=== PATIENT | female | born 1955 | race Caucasian/White ===

== ENCOUNTER 2019-02-23 12:36 | Day surgery (SDC) | payer OTHER, SELFPAY ==
--- NOTE | 2019-02-23 | PATH_ITS ---
[facility] Accession Number: [id number] . 01 Material submitted: . colon - COLON POLYP AT HEPATIC FLEXUEURE . 01 Clinical history: . SCREENING COLONOSCOPY . 02 Diagnosis: Colon, Hepatic Flexure Polyp, Biopsy: Colonic mucosa with a small benign lymphoid aggregate and no other diagnostic abnormality. Additional levels were examined. Negative for dysplasia and malignancy. [facility] 02/26/2019 1607 Local . 02 Electronically signed: . Marisela Woodson MD, Pathologist NPI- [id number] . 01 Gross description: . COLON POLYP AT HEPATIC FLEXUEURE: Received in formalin are 2 fragment(s) of negron, soft tissue measuring 0.6 x 0.2 x 0.1 cm to 0.5 x 0.2 x 0.1 cm submitted entirely in 1 cassette(s) /[facility] 02/23/2019 2102 Local . 02 Pathologist provided ICD-10: Z12.11, K63.5 . 02 CPT . 143621 Performed at: 01 [facility] [address], [place], [place] [id number] MD Jimy Killian MD Phone: [phone] Performed at: 02 [facility] [address] [place], [place] [id number] MD Marisela Woodson MD Phone: [phone]
[2019-02-23] MEDS: SODIUM CHLORIDE 0.9% 1,000 ML 200 ML IV (13:17)
[2019-02-23 13:18] VITALS: BP 123/74; PULSE 88; RESP 20; TEMP 36.6; O2SAT 94; BMI 34.7
--- NOTE | 2019-02-23 13:50 | PM.HP.1 ---
History of Present Illness History of Present Illness Date Patient Seen: 02/23/19 Time Patient Seen: 13:50 Chief complaint: 11306 SCREENING COLONOSCOPY Narrative: Patient here for screening colonoscopy is never had polyps during previous exams is asymptomatic Patient History Medical History Hypercholesteremia (Acute) Hypertension (Acute) Kidney stones (Acute) Surgical History H/O oophorectomy (Acute) Family & Social History Social History: household members spouse Meds Home Medications and Allergies Allergies Allergy/AdvReac Type Severity Reaction Status Date / Time bee venom protein (honey bee) Allergy Severe Anaphylaxis Verified 02/23/19 13:15 shrimp Allergy Severe Anaphylaxis Verified 02/23/19 13:15 Review of Systems Review of Systems ROS Unobtainable: All systems reviewed & are unremarkable except as noted in HPI and below Exam Vital Signs (past 8 hours): - 02/23/19 13:18 Temperature 97.8 F Pulse Rate 88 Respiratory Rate 20 Blood Pressure 123/74 Pulse Oximetry 94 Oxygen Delivery Method Room Air Narrative Exam Narrative: Patient is asymptomatic alert and oriented Lungs clear with no rales or wheezes Heart regular rhythm no murmur Abdomen soft no organomegaly no tenderness Rectal be done at colonoscopy Assessment & Plan Assessment & Plan narrative: Patient here for screening colonoscopy is never had polyps on previous colonoscopy she is asymptomatic she has no unanswered questions
--- NOTE | 2019-02-23 14:12 | PM.OP.1 ---
Operative Date/Time/Diagnoses Date of procedure: 02/23/19 Time of procedure: 14:12 Pre-op diagnosis: Screening colonoscopy Post-op diagnosis: other (5 mm polyp hepatic flexure also extensive sigmoid diverticulosis) Procedure & Clinicians Procedure: Total colonoscopy to the cecum and excisional biopsy of 5 mm polyp hepatic flexure Same procedure as scheduled: Yes Surgeon: Torres Camarena Click Yes if Unassisted: Yes Anesthesia Type: Sedation Operative Notes Closure Type: not applicable Procedure in detail: The patient was properly identified during surgical pause she was given a total of 2 mg of Versed and 100 micro g of fentanyl and remained comfortable throughout the procedure. The flexible fiberoptic colonoscope inserted transanally to the cecum. Patient has extensive sigmoid diverticulosis. She had a 5 mm polyp in the hepatic flexure which was excised with the cold forceps and submitted. This is likely not an adenoma but most likely a hyperplastic polyp. Procedures very well tolerated. Total time of sedation was 15 minutes scope withdrawal time was 8 minutes Complications: none Post-operative Disposition: PACU Plan for aftercare: Recommend colonoscopy repeat in 5 years. This is depending on the nature of the biopsy pending.
[2019-02-23 14:18] VITALS: BP 125/64; PULSE 79; RESP 15; TEMP 36.1; O2SAT 95
[2019-02-23 14:23] VITALS: BP 143/75; PULSE 83; RESP 16; O2SAT 96
[2019-02-23 14:26] VITALS: BP 121/61; PULSE 83; RESP 14; TEMP 36.8; O2SAT 96
[2019-02-23 14:32] VITALS: BP 123/74; PULSE 88; RESP 15; TEMP 36.1; O2SAT 94
== END 2019-02-23 14:38 | disposition home or self-care (01) ==
PROVIDERS: Family Provider Physician Assistant Medical; PCP Physician Assistant Medical; Visit Provider Surgery
PROC: 0DJD8ZZ Inspection of Lower Intestinal Tract, Via Natural or Artificial Opening Endoscopic (ICD-10-PCS; CPT 45378; principal; 2019-02-23 14:30)
DX: Z12.11 Encounter for screening for malignant neoplasm of colon (principal); E78.00 Pure hypercholesterolemia, unspecified; I10 Essential (primary) hypertension; K57.30 Diverticulosis of large intestine without perforation or abscess without bleeding; K63.5 Polyp of colon
CPT/HCPCS: 45380; 99152

== ENCOUNTER → 2021-08-27 10:35 | Outpatient (CLI) | payer MEDICARE, OTHER, SELFPAY ==
[2021-08-27 11:39] LABS: Alanine Aminotransferase 17 IU/L (<35); Albumin 4.1 g/dL (3.5-5.0); Albumin Globulin Ratio 1.5 (1.0-2.8); Alkaline Phosphatase 89 U/L (38-126); Aspartate Aminotransferase 25 IU/L (14-36); BUN Creatinine Ratio 26.2 (6-22); Bilirubin Total 0.7 mg/dL (0.2-1.3); Blood Urea Nitrogen 17 mg/dL (7-17); Calcium 9.1 mg/dL (8.4-10.2); Carbon Dioxide 27 mmol/L (22-32); Chloride 108 mmol/L (98-107); Cholesterol 281 mg/dL (140-199); Estimated Glomerular Filt Rate > 60 mL/min (>60); Globulin 2.8 g/dL (1.7-4.1); Glucose 102 mg/dL (80-110); HDL Cholesterol 63 mg/dL (40-60); HEMOLYSIS < 15 (0-50); LDL Cholesterol Calculated 188 mg/dL (<100); Potassium 4.6 mmol/L (3.4-5.1); Sodium 140 mmol/L (137-145); Total Protein 6.9 g/dL (6.3-8.2); Triglycerides 150 mg/dL (35-150)
[2021-08-30 18:55] LABS: Clam IgE 0.12 kU/L (Class 0/I); Crab IgE 0.12 kU/L (Class 0/I); Lobster IgE 0.29 kU/L (Class 0/I); Oyster IgE <0.10 kU/L (Class 0); Scallop Allergy IgE 0.13 kU/L (Class 0/I); Shrimp IgE 0.37 kU/L (Class I)
== END ==
PROVIDERS: Family Provider Physician Assistant Medical; PCP Physician Assistant Medical; Referring Provider Physician Assistant Medical; Visit Provider Physician Assistant Medical
DX: E78.5 Hyperlipidemia, unspecified (principal); R73.01 Impaired fasting glucose; T78.02XD Anaphylactic reaction due to shellfish (crustaceans), subsequent encounter
CPT/HCPCS: 36415; 80053; 80061; 86003